=== PATIENT | male | born 1970 | race Caucasian/White ===

== ENCOUNTER 2020-05-02 11:22 | Emergency (ER) | payer OTHER, SELFPAY ==
--- NOTE | ~2020-05-02 | XR_ITS ---
EXAMINATION: XR knee RT min 4V DATE: 05/02/2020 12:05 INDICATION: Right knee pain TECHNIQUE: Four views of the right knee were obtained. COMPARISON: None. FINDINGS: Alignment is normal. No fracture or osteochondral lesion. There is mild tricompartmental os teoarthritis characterized by tiny marginal osteophytes. There is moderate size knee joint effusion. A partially imaged intramedullary brennan is noted in the tibia. Soft tissues are unremarkable. Healed fr acture of the proximal fibula is noted. IMPRESSION: 1. Moderate size knee joint effusion without acute osseous abnormality. Reviewed, dictated and finalized at location A.
[2020-05-02 11:25] VITALS: BP 155/93; PULSE 89; RESP 16; TEMP 36.9; O2SAT 97
--- NOTE | 2020-05-02 12:56 | ED.LOWEXIN ---
HPI - Extremity Injury (Lower) General Chief Complaint: Extremity Injury, Lower <Dmitriy Jones PA-C - Last Filed: 05/02/20 12:59> Stated Complaint: RIGHT KNEE PAIN <Dmitriy Jones PA-C - Last Filed: 05/02/20 12:59> Time Seen by Provider: 05/02/20 11:59 <Dmitriy Jones PA-C - Last Filed: 05/02/20 12:59> Source: patient <Dmitriy Jones PA-C - Last Filed: 05/02/20 12:59> Mode of arrival: ambulatory <Dmitriy Jones PA-C - Last Filed: 05/02/20 12:59> Limitations: no limitations <Dmitriy Jones PA-C - Last Filed: 05/02/20 12:59> History of Present Illness HPI Narrative: Patient is a 50-year-old male who presents to emergency department for evaluation of right knee pain and swelling noting that several days ago he was ambulating while at work misstepped and felt a pop in the knee and has since had a fusion patient notes aching pain worse with activity and movement patient has prior surgical history of this knee patient has orthopedist that he will follow-up with patient denies other injuries or complaints or radicular symptoms or paresthesias <Dmitriy Jones PA-C - Last Filed: 05/02/20 12:59> Related Data Allergies/Adverse Reactions: Allergies Allergy/AdvReac Type Severity Reaction Status Date / Time No Known Allergies Allergy Verified 11/20/14 12:15 <Dmitriy Jones PA-C - Last Filed: 05/02/20 12:59> Review of Systems Review of Systems: All systems reviewed & are unremarkable except as noted in HPI and below <Dmitriy Jones PA-C - Last Filed: 05/02/20 12:59> PMFSH Surgical History Surgical History: Surgical History (Updated 05/02/20 @ 12:57 by Dmitriy Jones PA-C) History of orthopedic surgery <Dmitriy Jones PA-C - Last Filed: 05/02/20 12:59> Social History Social History: Social History (Updated 05/02/20 @ 12:57 by Dmitriy Jones PA-C) Smoking status: Current every day smoker Gender identity (if verbalized by the patient): Male <Dmitriy Jones PA-C - Last Filed: 05/02/20 12:59> Exam Narrative: Exam Narrative: GENERAL: Well-appearing, well-nourished, and in no acute distress. HEAD: Normocephalic, atraumatic. EYES: PERRLA and EOMI. ENT: Nares clear, no rhinorrhea or epistaxis. Mucous membranes moist. EXTREMITIES: Effusion with tenderness of the right knee no other deformities SKIN: Warm, dry, no rash. NEURO: No focal deficits. Alert and oriented x3. Neurovascularly intact. Capillary refill less than 2 seconds PSYCH: Normal mood and affect. <Dmitriy Jones PA-C - Last Filed: 05/02/20 12:59> Course Course Emergency Course: Patient in the room in no distress placed in Jose wrap and knee immobilizer with crutches noting that he will follow with his orthopedist <Dmitriy Jones PA-C - Last Filed: 05/02/20 12:59> Vital Signs Vital signs: Vital Signs Temperature 98.4 F 05/02/20 11:25 Pulse Rate 89 05/02/20 11:25 Respiratory Rate 16 05/02/20 11:25 Blood Pressure 155/93 H 05/02/20 11:25 Pulse Oximetry 97 05/02/20 11:25 Temperature 98.4 F 05/02/20 11:25 Pulse Rate 89 05/02/20 11:25 Respiratory Rate 16 05/02/20 11:25 Blood Pressure 155/93 H 05/02/20 11:25 Pulse Oximetry 97 05/02/20 11:25 <Dmitriy Jones PA-C - Last Filed: 05/02/20 12:59> Vital Signs Temperature 98.4 F 05/02/20 11:25 Pulse Rate 89 05/02/20 11:25 Respiratory Rate 16 05/02/20 11:25 Blood Pressure 155/93 H 05/02/20 11:25 Pulse Oximetry 97 05/02/20 11:25 Temperature 98.4 F 05/02/20 11:25 Pulse Rate 89 05/02/20 11:25 Respiratory Rate 16 05/02/20 11:25 Blood Pressure 155/93 H 05/02/20 11:25 Pulse Oximetry 97 05/02/20 11:25 <Paige Richards MD - Last Filed: 05/02/20 13:08> MDM - Extremity Injury (Lower) MDM Narrative Medical decision making narrative: Patients injury or pain is consistent with musculoskeletal etiology. No signs of neurologic
== END 2020-05-02 13:16 | disposition home or self-care (01) ==
PROVIDERS: Emergency Provider Emergency Medicine
DX: S83.206A Unspecified tear of unspecified meniscus, current injury, right knee, initial encounter (principal); M25.461 Effusion, right knee; W18.40XA Slipping, tripping and stumbling without falling, unspecified, initial encounter
CPT/HCPCS: 73564; 99283

== ENCOUNTER 2025-10-19 14:04 | Emergency (ER) | payer OTHER, SELFPAY ==
[2025-10-19 14:07] VITALS: BP 157/87; PULSE 81; RESP 16; TEMP 36.2; O2SAT 100
--- OUTSIDE RECORDS SUMMARY | 2025-10-19 15:14 | XMS_ITS | Clinical Summary ---
Author Organization [facility] Address [address] [place] [id number] Care Team Providers Care Podiatry Teacher Name Role Phone Unavailable Primary Care Provider Unavailabl e Social History Tobacco Use Types Packs/Day Years Used Date Smoking Tobacco: Never Assessed Sex and Gender Information Value Date Recorded Sex Assigned at Not on file Legal Sex Male 5:17 PM CDT Gender Identity Not on file Sexual Orientation Not on file Plan of Treatment Health Maintenance Due Date Last Done Comments Colorectal Cancer Screening Colonoscopy (10 Years) 1972 Annual Physical 01/23/1975 Hepatitis C 01/23/1990 DTaP, Tdap and Td Vaccines ( 1 - Tdap) 01/23/1991 Hepatitis B Vaccines (1 of 3 - 19+ 3-dose series) 01/23/1991 Pneumococcal Vaccine: 50+ Ye ars (1 of 1 - PCV) 01/23/2022 Zoster Vaccines (1 of 2) 01/23/2022 COVID-19 Vaccine ( - 2024-2 6 season) 2025 Influenza Adult (#1) 2025 Hepatitis A Vaccines Aged Out No long er eligible based on patient's age to complete this topic Meningococcal B Vaccine Aged Out No l onger eligible based on patient's age to complete this topic Meningococcal Vaccine Aged Out No garrett adrienne eligible based on patient's age to complete this topic RSV Immunizations Under 20 Months Aged Out No longer eligible based on patient's age to complete this topic
[2025-10-19] MEDS: LIDOCAINE 2% LOCAL INJ 20 ML VIAL 30 ML INFILTRATE (16:15)
--- OUTSIDE RECORDS SUMMARY | 2025-10-19 16:48 | XMS_ITS | Clinical Summary ---
Author Organization [facility] Address [address] [place] [id number] Care Team Providers Care Vocational Education Teacher Name Role Phone Unavailable Primary Care [...]
--- NOTE | 2025-10-19 18:50 | ED_ITS ---
HPI - General Adult General Chief complaint: Wound/Laceration Stated complaint: Left thumb injury Time Seen by Provider: 10/19/25 14:38 History of Present Illness HPI narrative: 55-year-old male presenting with left calf laceration. Patient states he was working on his car and accidentally cut himself with a knife. There is about a 2 cm laceration directly below and parallel to the nail bed. Patient is not on blood thinners. Denies numbness/tingling. Neurovascular intact. Related Data Allergies Allergy/AdvReac Type Severity Reaction Status Date / Time No Known Allergies Allergy Verified 10/19/25 15:00 Review of Systems Review of Systems: All systems reviewed & are unremarkable except as noted in HPI and below PMFSH Surgical History Surgical History (Updated 05/02/20 @ 12:57 by Dmitriy Jones, JENNI) History of orthopedic surgery Social History Social History (Updated 05/02/20 @ 12:57 by Dmitriy Jones, JENNI) Smoking status: Current every day smoker Gender identity (if verbalized by the patient): Male Exam Narrative: GENERAL: Well-appearing, well-nourished, and in no acute distress. HEAD: Normocephalic, atraumatic. EYES: PERRLA and EOMI. ENT: Nares clear, no rhinorrhea or epistaxis. Mucous membranes moist. Oropharynx without tonsillar hypertrophy exudate or other lesions. Bilateral TMs pearly hull non-bulging NECK: Supple. No adenopathy or masses. No carotid bruits or JVD CHEST: Clear to auscultation. No respiratory distress. No wheezes rales or rhonchi HEART: Regular rate and rhythm. No murmur heard. Normal peripheral pulses. ABDOMEN: Soft, nontender, nondistended, normal active bowel sounds. EXTREMITIES: Normal range of motion. No edema. 2cm laceration to right distal thumb directly below and parallel to the nail bed. Spares the nail bed. Neurovascular intact. Bleeding controlled. SKIN: Warm, dry, no rash. NEURO: No focal deficits. Alert and oriented x3. PSYCH: Normal mood and affect Course Vital Signs Vital signs: Vital Signs Temperature 97.1 F L 10/19/25 14:07 Pulse Rate 81 10/19/25 14:07 Respiratory Rate 16 10/19/25 14:07 Blood Pressure 157/87 H 10/19/25 14:07 Pulse Oximetry 100 10/19/25 14:07 Oxygen Delivery Room Air 10/19/25 14:07 Temperature 97.1 F L 10/19/25 14:07 Pulse Rate 81 10/19/25 14:07 Respiratory Rate 16 10/19/25 14:07 Blood Pressure 157/87 H 10/19/25 14:07 Pulse Oximetry 100 10/19/25 14:07 Oxygen Delivery Room Air 10/19/25 14:07 Procedures Laceration Laceration 1: Date: 10/19/25 Time: 17:00 Site: hand Side (If applicable): right Size (cm): 2 Description: linear Depth: simple, single layer Local Anesthetic: lidocaine 2% Amount of anesthesia used (mL): 5 Pre-repair: irrigated ====== Skin Level ====== Skin layer closed with: nylon Size (cm): 5-0 Number of sutures: 4 Technique: simple, interrupted ====== Subcutaneous Layer ====== ====== Muscle Layer ====== ====== Tendon Layer ====== MDM MDM Narrative Medical decision making narrative: 55-year-old male presenting with left calf laceration. Patient states he was working on his car and accidentally cut himself with a knife. There is about a 2 cm laceration directly below and parallel to the nail bed. Patient is not on blood thinners. Denies numbness/tingling. Neurovascular intact. Upon my initial assessment patient is reporting no pain. Verbal consent was obtained prior to the procedure. The wound was cleaned with Betadine and irrigated with copious amounts of normal saline. Lidocaine 2% was used for anesthesia. Wound was explored and no foreign body was seen. The wound was then closed with 4 5-0 nylon sutures in simple interrupted fashion. A sterile dressing was applied following the procedure. Patient tolerated the procedure well. Tetanus was updated. Due to the mechanism of injury, plan to send home with a course of Keflex. Patient agrees with discussion and after shared medical decision making agrees with plan of care. All questions were answered to the patient's satisfaction. The patient is appropriate for outpatient treatment and follow-up. Given reasons to return. Differential Diagnosis Differential Diagnosis: Differential diagnostic considerations for wound laceration include laceration, abscess, abrasion, avulsion of skin, skin foreign body. Discharge Plan Discharge Clinical Impression: Laceration Patient Disposition: Home Condition: Stable Instructions: Antibiotic Form, Care For Your Stitches (ED), Laceration (ED) Additional Instructions: Keep wound clean and dry for the first 24 hours. Gently wash with mild soap and water daily after 24 hours. Apply a thin layer of antibiotic ointment and cover with a sterile dressing. Change dressing daily or if it becomes wet or dirty. Avoid strenuous activity or stretching that may open the wound. Do not pick at stitches or scabs. Return to ED if you notice redness, swelling, or warmth around the wound, pus or foul smelling drainage, fever/chills, or worsening pain or bleeding that cannot be controlled with pressure. Use acetaminophen or ibuprofen for pain. Stitches should be removed in approximately 7 days by your primary care provider or urgent care provider. Patient Language: Monegasque Prescriptions: New cephalexin 500 mg capsule 500 mg PO Q12H Qty: 14 0RF No Action meloxicam 15 mg tablet 15 mg PO ONCE Qty: 7 0RF Follow-up/Referrals: UNKNOWN,DOCTOR [Primary Care Provider]
== END 2025-10-19 17:42 | disposition home or self-care (01) ==
DX: S81.812A Laceration without foreign body, left lower leg, initial encounter (principal); F17.200 Nicotine dependence, unspecified, uncomplicated; W26.0XXA Contact with knife, initial encounter
CPT/HCPCS: 12001; 99283; J2003